=== PATIENT | female | born 1965 | race Asian ===

== ENCOUNTER 2023-04-19 07:21 | Day surgery (SDC) | payer OTHER ==
[~2023-04-19] VITALS: Ht 160 cm; Wt 52.6 kg
[2023-04-19 08:30] LABS: HCG,QUAL RESULT NEGATIVE (NEGATIVE)
[2023-04-19] MEDS ORDERED: MIDAZOLAM HCL 5 MG/5 ML VIAL ONE (09:18)
[2023-04-19] MEDS ORDERED: fentaNYL CITRATE/PF 100 MCG/2 ML AMP ONE (09:18)
[2023-04-19 10:58] VITALS: O2SAT 97
[2023-04-19 12:40] VITALS: BP_SYST 110; PULSE 72; RESP 21
== END 2023-04-19 10:58 | disposition home or self-care (01) ==
LOC: SOR 07:21 → SMU 07:23 → SOR 10:58
PROVIDERS: ATTEND Internal Medicine Gastroenterology
DX: Z12.11 Encounter for screening for malignant neoplasm of colon (principal); D12.2 Benign neoplasm of ascending colon; Z86.010 Personal history of colon polyps; K64.9 Unspecified hemorrhoids
CPT/HCPCS: 45385; 99152; 84703; 88305; 99153; G0378; J2250; J3010